=== PATIENT | male | born 1980 | race Caucasian/White ===

== ENCOUNTER 2017-11-30 02:55 | Emergency (ER) | payer MEDICAID ==
[~2017-11-30] VITALS: Ht 172.7 cm; Wt 61.2 kg
[~2017-11-30 02:55] MED LIST: ALBU90OI INH; BACITO TP; Bactrim Ds Tab1 EACH PO; CEPH500 PO; CITA20; CITA20 PO; CLIN300 PO; CLON.1; CLON.1 PO; CLON.2TP TP; CLON1; CLON1 PO; CODACE30 PO; DIPH50; DIPH50 PO; ERYT1OIN LEFTEYE; HYDACE10B PO; HYDACE5 PO; HYDACE5325 PO; IBUP400 PO; IBUP600 PO; IBUP800; IBUP800 PO; KETO10 PO; META800 PO; METH40; METH40 PO; NAPR500 PO; NAPR550 PO; Naprosyn500 MG PO; OXYACE5T PO; OXYC5 PO; PENVK500 PO; PRED20 PO; PROCODE120 PO; PROM25 PO; Percocet 5-3251 EACH PO; RXHYD5325 PO; RXOXYACE PO; RXPENVK250 PO; SULI150 PO; SULTRIDS PO; Sudogest30 MG PO; TRAM50 PO; Vibramycin100 MG PO
[2017-11-30] MEDS ORDERED: Bactrim Ds Tab1 EACH PO (04:44)
== END 2017-11-30 05:22 | disposition home or self-care (01) ==
LOC: ER 02:55
DX: L98.9 Disorder of the skin and subcutaneous tissue, unspecified (principal); F17.210 Nicotine dependence, cigarettes, uncomplicated; Z88.5 Allergy status to narcotic agent
CPT/HCPCS: 99282

== ENCOUNTER 2018-04-21 15:33 | Emergency (ER) | payer MEDICAID ==
[~2018-04-21] VITALS: Ht 180.3 cm; Wt 72.6 kg
[2018-04-21] MEDS ORDERED: Keflex500 MG PO (16:30)
[2018-04-21] MEDS ORDERED: Bactrim Ds Tab1 EACH PO (16:30)
== END 2018-04-21 16:36 | disposition home or self-care (01) ==
LOC: ER 15:33
DX: L03.211 Cellulitis of face (principal); F17.200 Nicotine dependence, unspecified, uncomplicated; Z88.5 Allergy status to narcotic agent
CPT/HCPCS: 99283

== ENCOUNTER 2018-07-16 10:49 | Observation (INO) | payer OTHER ==
[~2018-07-16] VITALS: Ht 180.3 cm; Wt 74.8 kg
[~2018-07-16 10:49] MED LIST changes: +Keflex500 MG PO
[2018-07-16 11:31] LABS: BASOPHILS ABSOLUTE AUTO 0.14 K/mm3 (0.00-0.23); BASOPHILS PERCENT AUTO 2 % (0-2); EOSINOPHILS ABSOLUTE AUTO 0.46 K/mm3 (0.00-0.68); EOSINOPHILS PERCENT AUTO 6 % (0-6); Hematocrit 45.4 % (37.0-53.0); Hemoglobin 14.6 g/dL (13.5-17.5); IMMATURE GRAN ABSOLUTE AUTO 0.01 K/mm3 (0.00-0.10); IMMATURE GRAN PERCENT AUTO 0 % (0-1); LYMPHOCYTES ABSOLUTE AUTO 2.34 K/mm3 (0.84-5.20); LYMPHOCYTES PERCENT AUTO 30 % (21-46); MONOCYTES ABSOLUTE AUTO 0.88 K/mm3 (0.16-1.47); MONOCYTES PERCENT AUTO 11 % (4-13); Mean Corpuscular HGB 28.5 pg (26.0-34.0); Mean Corpuscular HGB Conc 32.2 g/dL (31.5-36.5); Mean Corpuscular Volume 89 fL (80-100); Mean Platelet Volume 9.5 fL (9.1-12.4); NEUTROPHILS ABSOLUTE AUTO 3.99 K/mm3 (1.96-9.15); NEUTROPHILS PERCENT AUTO 51 % (41-73); Platelet Count 445 K/mm3 (150-400); RDW Coefficient Variation 14.3 % (11.7-14.2); RDW Standard Deviation 47.1 fL (35.1-46.3); Red Blood Cell Count 5.13 M/mm3 (4.30-5.90); White Blood Cell Count 7.82 K/mm3 (4.00-11.30)
[2018-07-16 12:03] LABS: Ethanol (Alcohol), Blood, Med <3 mg/dL; Salicylate <1.7 mg/dL (2.8-20.0)
[2018-07-16 12:08] LABS: Alanine Aminotransfer (ALT/SGP 36 U/L (12-78); Albumin, Blood 3.6 g/dL (3.4-5.0); Alk Phos 83 U/L (50-136); Anion Gap 8 mmol/L (6-16); Aspartate Aminotrans (AST/SGOT 23 U/L (12-37); Bilirubin, Total 1.2 mg/dL (0.1-1.0); Blood Urea Nitrogen 17 mg/dL (8-24); Bun/Creatinine Ratio 18.3 (12.0-20.0); CO2, Blood 29 mmol/L (21-32); Calcium, Blood 8.5 mg/dL (8.5-10.1); Chloride, Blood 106 mmol/L (98-108); Creatinine, Blood 0.93 mg/dL (0.60-1.20); Globulin, Blood 3.7 g/dL (2.2-4.0); Glomerular Filtration Rate >60 (60-); Glucose, Blood 57 mg/dL (70-99); Potassium, Blood 3.6 mmol/L (3.5-5.5); Sodium, Blood 143 mmol/L (136-145); Total Protein, Blood 7.3 g/dL (6.4-8.2)
[2018-07-16 12:17] LABS: Acetaminophen, Random <2.0 ug/mL (10.0-30.0)
[2018-07-16 12:53] LABS: Source, Urine Clean Catch
[2018-07-16 12:58] LABS: Appearance, Urine Clear (Clear); Bilirubin, Urine Neg (Neg); Blood, Urine Neg (Neg); Color, Urine Yellow (P-Yellow); Glucose Qualitative, Urine Neg (Neg); Ketones, Urine Neg (Neg); Leukocyte Esterase, Urine Neg (Neg); Nitrite, Urine Neg (Neg); Protein, Urine Neg (Neg); Specific Gravity, Urine 1.015 (1.003-1.022); Urobilinogen, Urine NORM (Normal)
[2018-07-16 13:17] LABS: U Amphetamine Screen DETECTED; U Barbituate Screen Not Detected; U Benzodiazapine Screen Not Detected; U Cannabinoids Screen DETECTED; U Cocaine Screen Not Detected; U Methadone Screen Not Detected; U Methamphetamine Screen DETECTED; U Opiates Screen Not Detected; U Phencyclidine Screen Not Detected
[2018-07-16 13:18] LABS: U Buprenorphine Screen Not Detected; U Oxycodone Screen Not Detected; U Propoxyphene Screen Not Detected
== END 2018-07-17 08:58 | disposition home or self-care (01) ==
LOC: ER 10:49 → EOR 10:50
PROVIDERS: Physician Assistant
DX: F15.959 Other stimulant use, unspecified with stimulant-induced psychotic disorder, unspecified (principal); F17.210 Nicotine dependence, cigarettes, uncomplicated; Z88.5 Allergy status to narcotic agent; Z79.899 Other long term (current) drug therapy
CPT/HCPCS: 36415; 80053; 81003; 84443; 85025; 99285; G0378; G0480; Q3014

== ENCOUNTER 2018-10-02 15:51 | Emergency (ER) | payer OTHER ==
[~2018-10-02] VITALS: Ht 180.3 cm; Wt 81.7 kg
[2018-10-02] MEDS ORDERED: CYCL10 PO (16:38)
== END 2018-10-02 16:48 | disposition home or self-care (01) ==
LOC: ER 15:51
DX: S39.012A Strain of muscle, fascia and tendon of lower back, initial encounter (principal); Z88.5 Allergy status to narcotic agent; X58.XXXA Exposure to other specified factors, initial encounter
CPT/HCPCS: 99283

== ENCOUNTER 2018-10-11 19:32 | Emergency (ER) | payer OTHER ==
[~2018-10-11] VITALS: Ht 180.3 cm; Wt 74.8 kg
[~2018-10-11 19:32] MED LIST changes: +CYCL10 PO
[2018-10-11 20:13] LABS: Influenza A Negative (NEGATIVE); Influenza B Negative (NEGATIVE)
== END 2018-10-11 22:36 | disposition home or self-care (01) ==
LOC: ER 19:32
PROVIDERS: Physician Assistant
DX: R05 Cough (principal); M79.10 Myalgia, unspecified site; F15.10 Other stimulant abuse, uncomplicated; Z88.5 Allergy status to narcotic agent; Z88.6 Allergy status to analgesic agent; Z87.891 Personal history of nicotine dependence; R50.9 Fever, unspecified; Z59.0 Homelessness
CPT/HCPCS: 71046; 87804; 99283-25

== ENCOUNTER 2019-02-15 23:02 | Emergency (ER) | payer OTHER ==
[~2019-02-15] VITALS: Ht 180.3 cm; Wt 72.1 kg
[2019-02-15] MEDS ORDERED: Norco 5-325 Ta1 EACH PO (23:49)
[2019-02-15] MEDS ORDERED: ACETAMINOPHEN500 MG PO (23:49)
== END 2019-02-16 01:01 | disposition home or self-care (01) ==
LOC: ER 23:02
DX: S42.322A Displaced transverse fracture of shaft of humerus, left arm, initial encounter for closed fracture (principal); W18.30XA Fall on same level, unspecified, initial encounter; Z88.6 Allergy status to analgesic agent; Z88.5 Allergy status to narcotic agent; Z87.891 Personal history of nicotine dependence
CPT/HCPCS: 29105; 73060; 96374-59; 96375-59; 99284-25; J1170; J3010

== ENCOUNTER 2019-02-28 08:39 | Emergency (ER) | payer OTHER ==
[~2019-02-28] VITALS: Ht 180.3 cm; Wt 72.6 kg
[~2019-02-28 08:39] MED LIST changes: +ACETAMINOPHEN500 MG PO; +Norco 5-325 Ta1 EACH PO
== END 2019-02-28 09:46 | disposition home or self-care (01) ==
LOC: ER 08:39
DX: S42.302A Unspecified fracture of shaft of humerus, left arm, initial encounter for closed fracture (principal); R45.1 Restlessness and agitation; Z91.14 Patient's other noncompliance with medication regimen; Z88.5 Allergy status to narcotic agent; Z88.8 Allergy status to other drugs, medicaments and biological substances; Z87.891 Personal history of nicotine dependence; X58.XXXA Exposure to other specified factors, initial encounter
CPT/HCPCS: 29105; 73060; 99283-25; A9270

== ENCOUNTER 2020-07-15 17:57 | Emergency (ER) | payer OTHER ==
[~2020-07-15] VITALS: Ht 180.3 cm; Wt 72.6 kg
[2020-07-15 19:11] LABS: BASOPHILS ABSOLUTE AUTO 0.12 K/mm3 (0.00-0.23); BASOPHILS PERCENT AUTO 1 % (0-2); EOSINOPHILS ABSOLUTE AUTO 0.36 K/mm3 (0.00-0.68); EOSINOPHILS PERCENT AUTO 4 % (0-6); Hematocrit 39.3 % (37.0-53.0); IMMATURE GRAN ABSOLUTE AUTO 0.05 K/mm3 (0.00-0.10); IMMATURE GRAN PERCENT AUTO 1 % (0-1); LYMPHOCYTES PERCENT AUTO 22 % (21-46); MONOCYTES ABSOLUTE AUTO 0.93 K/mm3 (0.16-1.47); MONOCYTES PERCENT AUTO 9 % (4-13); Mean Corpuscular HGB 27.8 pg (26.0-34.0); Mean Corpuscular HGB Conc 33.1 g/dL (31.5-36.5); Mean Corpuscular Volume 84 fL (80-100); Mean Platelet Volume 8.9 fL (9.1-12.4); NEUTROPHILS ABSOLUTE AUTO 6.61 K/mm3 (1.96-9.15); NEUTROPHILS PERCENT AUTO 64 % (41-73); Platelet Count 415 K/mm3 (150-400); RDW Coefficient Variation 13.9 % (11.7-14.2); Red Blood Cell Count 4.67 M/mm3 (4.30-5.90); White Blood Cell Count 10.37 K/mm3 (4.00-11.30)
[2020-07-15 19:30] LABS: Alanine Aminotransfer (ALT/SGP 45 U/L (12-78); Albumin, Blood 3.2 g/dL (3.4-5.0); Albumin/Globulin Ratio 1.1 (0.8-1.8); Alk Phos 69 U/L (50-136); Anion Gap 9 mmol/L (6-16); Aspartate Aminotrans (AST/SGOT 53 U/L (12-37); Bilirubin, Total 0.5 mg/dL (0.1-1.0); Blood Urea Nitrogen 23 mg/dL (8-24); Bun/Creatinine Ratio 25.3 (12.0-20.0); CO2, Blood 24 mmol/L (21-32); Calcium, Blood 8.6 mg/dL (8.5-10.1); Chloride, Blood 103 mmol/L (98-108); Creatinine, Blood 0.91 mg/dL (0.60-1.20); Glomerular Filtration Rate >60 (60-); Glucose, Blood 140 mg/dL (70-99); Potassium, Blood 3.4 mmol/L (3.5-5.5); Sodium, Blood 136 mmol/L (136-145); Total Protein, Blood 6.2 g/dL (6.4-8.2)
[2020-07-15] MEDS ORDERED: AMOCLA875 PO (22:04)
[2020-07-16] MEDS ORDERED: AMOCLA875 PO (21:57)
[2020-07-20] MEDS ORDERED: Bactrim Ds Tab1 EACH PO (23:50)
== END 2020-07-15 22:22 | disposition home or self-care (01) ==
LOC: ER 17:57
PROVIDERS: Physician Assistant
DX: L02.612 Cutaneous abscess of left foot (principal); L03.116 Cellulitis of left lower limb; Z88.5 Allergy status to narcotic agent; Z88.6 Allergy status to analgesic agent; Z79.899 Other long term (current) drug therapy; Z87.891 Personal history of nicotine dependence
CPT/HCPCS: 36415; 73630; 80053; 83605; 85025; 96374; 96375; 99284-25; G0480; J2543; J3370; J7120

== ENCOUNTER 2020-07-16 20:05 | Emergency (ER) | payer OTHER ==
[~2020-07-16] VITALS: Ht 180.3 cm; Wt 74.8 kg
[~2020-07-16 20:05] MED LIST changes: +AMOCLA875 PO
[2020-07-16] MEDS ORDERED: AMOCLA875 PO (21:57)
[2020-07-20] MEDS ORDERED: Bactrim Ds Tab1 EACH PO (23:50)
== END 2020-07-16 22:10 | disposition home or self-care (01) ==
LOC: ER 20:05
DX: L03.116 Cellulitis of left lower limb (principal); F17.200 Nicotine dependence, unspecified, uncomplicated; Z88.5 Allergy status to narcotic agent; Z88.6 Allergy status to analgesic agent
CPT/HCPCS: 99281

== ENCOUNTER 2020-09-03 03:27 | Emergency (ER) | payer OTHER ==
[~2020-09-03] VITALS: Ht 180.3 cm; Wt 72.6 kg
[2020-11-17] MEDS ORDERED: AMOCLA875 PO (02:49)
== END 2020-09-03 03:59 | disposition home or self-care (01) ==
LOC: ER 03:27
DX: Z00.00 Encounter for general adult medical examination without abnormal findings (principal); R21 Rash and other nonspecific skin eruption; F17.200 Nicotine dependence, unspecified, uncomplicated; Z88.6 Allergy status to analgesic agent; Z88.5 Allergy status to narcotic agent
CPT/HCPCS: 99282

== ENCOUNTER 2020-10-22 21:15 | Emergency (ER) | payer OTHER ==
[~2020-10-22] VITALS: Ht 170.2 cm; Wt 65.8 kg
[2020-11-17] MEDS ORDERED: AMOCLA875 PO (02:49)
== END 2020-10-22 22:40 | disposition home or self-care (01) ==
LOC: ER 21:15
DX: Z00.00 Encounter for general adult medical examination without abnormal findings (principal); Z88.5 Allergy status to narcotic agent; Z88.6 Allergy status to analgesic agent; F17.200 Nicotine dependence, unspecified, uncomplicated
CPT/HCPCS: 99283

== ENCOUNTER 2020-10-30 02:49 | Emergency (ER) | payer OTHER ==
[~2020-10-30] VITALS: Ht 180.3 cm; Wt 68.0 kg
== END 2020-10-30 06:56 | disposition home or self-care (01) ==
LOC: ER 02:49
DX: F29 Unspecified psychosis not due to a substance or known physiological condition (principal)
CPT/HCPCS: 99285

== ENCOUNTER 2020-11-08 00:40 | Emergency (ER) | payer OTHER ==
[~2020-11-08] VITALS: Ht 180.3 cm; Wt 70.3 kg
== END 2020-11-08 02:13 | disposition left against medical advice (07) ==
LOC: ER 00:40
DX: Z53.21 Procedure and treatment not carried out due to patient leaving prior to being seen by health care provider (principal)

== ENCOUNTER 2021-01-03 02:52 | Emergency (ER) | payer OTHER | END 2021-01-03 04:20 | disposition left against medical advice (07) | LOC: ER 02:52 | DX: Z53.21 Procedure and treatment not carried out due to patient leaving prior to being seen by health care provider (principal) ==

== ENCOUNTER 2021-01-27 04:09 | Emergency (ER) | payer OTHER ==
[~2021-01-27] VITALS: Ht 182.9 cm; Wt 74.8 kg
[2021-01-27] MEDS ORDERED: CEPH500 PO (06:36)
== END 2021-01-27 06:45 | disposition home or self-care (01) ==
LOC: ER 04:09
DX: L03.116 Cellulitis of left lower limb (principal); Z88.5 Allergy status to narcotic agent; F17.200 Nicotine dependence, unspecified, uncomplicated
CPT/HCPCS: 99283; A9270

== ENCOUNTER 2021-01-29 00:03 | Emergency (ER) | payer OTHER ==
[~2021-01-29] VITALS: Ht 180.3 cm; Wt 73.0 kg
== END 2021-01-29 00:22 | disposition home or self-care (01) ==
LOC: ER 00:03
DX: R45.1 Restlessness and agitation (principal); R45.6 Violent behavior; F17.200 Nicotine dependence, unspecified, uncomplicated; Z88.5 Allergy status to narcotic agent
CPT/HCPCS: 99283

== ENCOUNTER 2021-04-14 06:23 | Emergency (ER) | payer OTHER ==
[~2021-04-14] VITALS: Ht 180.3 cm; Wt 74.8 kg
[2021-04-14] MEDS ORDERED: MUPIROCIN15 GM TOP (07:09)
[2021-04-14] MEDS ORDERED: Bactrim Ds Tab1 EACH PO (07:09)
[2021-04-14] MEDS ORDERED: CEPH500 PO (07:09)
== END 2021-04-14 07:34 | disposition home or self-care (01) ==
LOC: ER 06:23
DX: L01.00 Impetigo, unspecified (principal); F17.200 Nicotine dependence, unspecified, uncomplicated
CPT/HCPCS: 99282; A9270

== ENCOUNTER 2021-04-29 04:44 | Emergency (ER) | payer OTHER ==
[~2021-04-29] VITALS: Ht 185.4 cm; Wt 68.0 kg
[~2021-04-29 04:44] MED LIST changes: +MUPIROCIN15 GM TOP
== END 2021-04-29 05:16 | disposition home or self-care (01) ==
LOC: ER 04:44
DX: L01.00 Impetigo, unspecified (principal); F17.200 Nicotine dependence, unspecified, uncomplicated; Z88.5 Allergy status to narcotic agent
CPT/HCPCS: 99282; A9270

== ENCOUNTER 2021-06-06 01:18 | Emergency (ER) | payer OTHER ==
[~2021-06-06] VITALS: Ht 180.3 cm; Wt 72.6 kg
[2021-06-06] MEDS ORDERED: CLIN300 PO (02:02)
== END 2021-06-06 02:13 | disposition home or self-care (01) ==
LOC: ER 01:18
DX: K03.81 Cracked tooth (principal); F17.200 Nicotine dependence, unspecified, uncomplicated
CPT/HCPCS: 99282; A9270

== ENCOUNTER 2021-08-01 05:05 | Emergency (ER) | payer OTHER ==
[~2021-08-01] VITALS: Ht 180.3 cm; Wt 72.6 kg
[2021-08-01] MEDS ORDERED: MUPIROCIN1 G1 TOP (05:29)
== END 2021-08-01 05:58 | disposition home or self-care (01) ==
LOC: ER 05:05
DX: L08.9 Local infection of the skin and subcutaneous tissue, unspecified (principal); F17.200 Nicotine dependence, unspecified, uncomplicated
CPT/HCPCS: 99282; A9270

== ENCOUNTER 2021-08-07 23:27 | Emergency (ER) | payer OTHER ==
[~2021-08-07] VITALS: Ht 180.3 cm; Wt 72.6 kg
[~2021-08-07 23:27] MED LIST changes: +MUPIROCIN1 G1 TOP
== END 2021-08-08 00:45 | disposition left against medical advice (07) ==
LOC: ER 23:27
DX: S63.502A Unspecified sprain of left wrist, initial encounter (principal); F17.200 Nicotine dependence, unspecified, uncomplicated; Z88.5 Allergy status to narcotic agent; X58.XXXA Exposure to other specified factors, initial encounter
CPT/HCPCS: 73100; 99283-25

== ENCOUNTER 2021-08-29 02:35 | Emergency (ER) | payer OTHER ==
[~2021-08-29] VITALS: Ht 185.4 cm; Wt 72.6 kg
== END 2021-08-29 03:20 | disposition home or self-care (01) ==
LOC: ER 02:35
DX: F15.10 Other stimulant abuse, uncomplicated (principal); F17.200 Nicotine dependence, unspecified, uncomplicated; Z88.5 Allergy status to narcotic agent
CPT/HCPCS: 99282; A9270

== ENCOUNTER 2021-11-06 05:08 | Emergency (ER) | payer OTHER ==
[~2021-11-06] VITALS: Ht 180.3 cm; Wt 74.8 kg
== END 2021-11-06 05:43 | disposition home or self-care (01) ==
LOC: ER 05:08
DX: Z00.00 Encounter for general adult medical examination without abnormal findings (principal); F17.200 Nicotine dependence, unspecified, uncomplicated; Z88.5 Allergy status to narcotic agent; Z88.6 Allergy status to analgesic agent
CPT/HCPCS: 99282

== ENCOUNTER 2021-11-09 03:26 | Emergency (ER) | payer OTHER ==
[~2021-11-09] VITALS: Ht 180.3 cm; Wt 74.8 kg
[2021-11-09] MEDS ORDERED: NAPR500 PO (04:21)
== END 2021-11-09 04:56 | disposition home or self-care (01) ==
LOC: ER 03:26
DX: M54.16 Radiculopathy, lumbar region (principal); F17.200 Nicotine dependence, unspecified, uncomplicated; Z88.8 Allergy status to other drugs, medicaments and biological substances
CPT/HCPCS: 99283

== ENCOUNTER 2021-11-12 23:39 | Emergency (ER) | payer OTHER ==
[~2021-11-12] VITALS: Ht 180.3 cm; Wt 75.4 kg
== END 2021-11-13 00:38 | disposition home or self-care (01) ==
LOC: ER 23:39
DX: K13.0 Diseases of lips (principal); F17.200 Nicotine dependence, unspecified, uncomplicated; Z59.00 Homelessness unspecified; Z88.5 Allergy status to narcotic agent
CPT/HCPCS: 99282

== ENCOUNTER 2021-11-15 12:26 | Emergency (ER) | payer OTHER ==
[~2021-11-15] VITALS: Ht 180.3 cm; Wt 86.2 kg
== END 2021-11-15 13:33 | disposition home or self-care (01) ==
LOC: ER 12:26
DX: R45.1 Restlessness and agitation (principal); F17.210 Nicotine dependence, cigarettes, uncomplicated; Z88.6 Allergy status to analgesic agent; Z88.5 Allergy status to narcotic agent
CPT/HCPCS: 71045

== ENCOUNTER 2021-12-13 22:58 | Emergency (ER) | payer OTHER ==
[~2021-12-13] VITALS: Ht 180.3 cm; Wt 72.6 kg
[2021-12-13] MEDS ORDERED: Veetids 500500 MG PO (23:41)
== END 2021-12-13 23:50 | disposition home or self-care (01) ==
LOC: ER 22:58
DX: K08.89 Other specified disorders of teeth and supporting structures (principal); F17.200 Nicotine dependence, unspecified, uncomplicated; Z88.5 Allergy status to narcotic agent
CPT/HCPCS: 99282

== ENCOUNTER 2021-12-24 03:35 | Emergency (ER) | payer OTHER ==
[~2021-12-24] VITALS: Ht 180.3 cm; Wt 72.6 kg
[~2021-12-24 03:35] MED LIST changes: +Veetids 500500 MG PO
== END 2021-12-24 04:15 | disposition home or self-care (01) ==
LOC: ER 03:35
DX: M20.12 Hallux valgus (acquired), left foot (principal); M20.11 Hallux valgus (acquired), right foot; F17.200 Nicotine dependence, unspecified, uncomplicated; Z88.5 Allergy status to narcotic agent; Z79.899 Other long term (current) drug therapy
CPT/HCPCS: A9270

== ENCOUNTER 2022-02-27 22:45 | Emergency (ER) | payer OTHER ==
[~2022-02-27] VITALS: Ht 180.3 cm; Wt 77.1 kg
== END 2022-02-27 23:11 | disposition home or self-care (01) ==
LOC: ER 22:45
DX: F15.959 Other stimulant use, unspecified with stimulant-induced psychotic disorder, unspecified (principal); Z88.5 Allergy status to narcotic agent; F17.200 Nicotine dependence, unspecified, uncomplicated
CPT/HCPCS: 99282

== ENCOUNTER 2022-04-29 22:26 | Emergency (ER) | payer OTHER ==
[~2022-04-29] VITALS: Ht 180.3 cm; Wt 72.6 kg
== END 2022-04-30 00:12 | disposition home or self-care (01) ==
LOC: ER 22:26
DX: M21.622 Bunionette of left foot (principal); M20.12 Hallux valgus (acquired), left foot; F17.200 Nicotine dependence, unspecified, uncomplicated; Z88.5 Allergy status to narcotic agent
CPT/HCPCS: 73630; 99283-25; A9270

== ENCOUNTER 2025-01-13 21:47 | Emergency (ER) | payer OTHER ==
[~2025-01-13] VITALS: Ht 180.3 cm; Wt 63.5 kg
[2025-01-13] MEDS ORDERED: NS 1,000 ML IV SCH (22:35)
[2025-01-14] MEDS ORDERED: RX Prepack 2 Sprays Naloxone HCL 4 MG/SPRAY UD ONE (03:15)
[2025-01-14 03:30] VITALS: BP 135/75
== END 2025-01-14 03:50 | disposition home or self-care (01) ==
LOC: ER 21:47
DX: T50.7X1A Poisoning by analeptics and opioid receptor antagonists, accidental (unintentional), initial encounter (principal); R40.0 Somnolence; Z88.5 Allergy status to narcotic agent; Z88.8 Allergy status to other drugs, medicaments and biological substances; F17.210 Nicotine dependence, cigarettes, uncomplicated; Z59.89 Other problems related to housing and economic circumstances
CPT/HCPCS: 93005; 93010; 99284-25; A9270

== ENCOUNTER 2025-03-29 04:54 | Emergency (ER) | payer OTHER ==
[~2025-03-29] VITALS: Ht 180.3 cm; Wt 81.7 kg
[2025-03-29] MEDS ORDERED: Morphine Sulfate 4 MG/1 ML Injection IV ONE (07:10)
[2025-03-29] MEDS ORDERED: NS 1,000 ML IV SCH (07:10)
[2025-03-29 07:40] VITALS: BP 142/93
[2025-03-29 07:49] LABS: BASOPHILS ABSOLUTE AUTO 0.18 K/mm3 (0.00-0.23); BASOPHILS PERCENT AUTO 1 % (0-2); EOSINOPHILS ABSOLUTE AUTO 0.40 K/mm3 (0.00-0.68); EOSINOPHILS PERCENT AUTO 2 % (0-6); Hematocrit 40.8 % (37.0-53.0); Hemoglobin 13.5 g/dL (13.5-17.5); IMMATURE GRAN ABSOLUTE AUTO 0.07 K/mm3 (0.00-0.10); IMMATURE GRAN PERCENT AUTO 0 % (0-1); LYMPHOCYTES ABSOLUTE AUTO 2.87 K/mm3 (0.84-5.20); LYMPHOCYTES PERCENT AUTO 16 % (21-46); MONOCYTES ABSOLUTE AUTO 2.23 K/mm3 (0.16-1.47); MONOCYTES PERCENT AUTO 13 % (4-13); Mean Corpuscular HGB Conc 33.1 g/dL (31.5-36.5); Mean Corpuscular Volume 86 fL (80-100); NEUTROPHILS ABSOLUTE AUTO 12.16 K/mm3 (1.96-9.15); NEUTROPHILS PERCENT AUTO 68 % (41-73); NRBC ABSOLUTE 0.00 K/mm3 (0.00-0.02); NRBC Auto 0.0 /100 WBC (0.0-0.2); Platelet Count 331 K/mm3 (150-400); RDW Coefficient Variation 14.4 % (11.7-14.2); RDW Standard Deviation 46.1 fL (35.1-46.3)
[2025-03-29 08:10] LABS: Anion Gap 9.0 mmol/L (3-11); Blood Urea Nitrogen 11.0 mg/dL (8-24); CO2, Blood 27.0 mmol/L (21-32); Calcium, Blood 9.0 mg/dL (8.5-10.1); Chloride, Blood 102.0 mmol/L (98-108); Creatinine, Blood 0.74 mg/dL (0.60-1.20); Glucose, Blood 81.0 mg/dL (70-99); Potassium, Blood 3.6 mmol/L (3.5-5.5); Sodium, Blood 134.0 mmol/L (136-145)
[2025-03-29] MEDS ORDERED: CefTRIAXone Sodium 1,000 MG in NS 100 ML IV ONE (08:25)
[2025-03-29] MEDS ORDERED: Ketorolac Tromethamine 30mg Vial IV ONE (08:35)
[2025-03-30] MEDS ORDERED: BACTRIM DS TAB1 EAC2 PO (05:22)
== END 2025-03-29 08:55 | disposition left against medical advice (07) ==
LOC: ER 04:54
PROVIDERS: Registered Nurse
DX: L02.211 Cutaneous abscess of abdominal wall (principal); F17.210 Nicotine dependence, cigarettes, uncomplicated; Z53.29 Procedure and treatment not carried out because of patient's decision for other reasons
CPT/HCPCS: 74177; 80048; 85025; 99283-25; J0696; J1885; J2270; J7030; Q9967

== ENCOUNTER 2025-03-30 03:26 | Emergency (ER) | payer OTHER ==
[~2025-03-30] VITALS: Ht 180.3 cm; Wt 65.8 kg
[2025-03-30] MEDS ORDERED: Lidocaine HCl 4% Cream 5 GM TOP ONE (04:25)
[2025-03-30] MEDS ORDERED: Trimethoprim/Sulfamethoxazole DS Tab PO ONE (05:10)
[2025-03-30] MEDS ORDERED: BACTRIM DS TAB1 EAC2 PO (05:22)
[2025-03-30 05:43] VITALS: BP 123/75
== END 2025-03-30 05:56 | disposition home or self-care (01) ==
LOC: ER 03:26
DX: L02.211 Cutaneous abscess of abdominal wall (principal); L03.311 Cellulitis of abdominal wall; Z88.5 Allergy status to narcotic agent; F17.210 Nicotine dependence, cigarettes, uncomplicated
CPT/HCPCS: 99282; A9270